=== PATIENT | male | born 1980 | race Caucasian/White ===

== ENCOUNTER 2018-11-26 23:19 | Emergency (ER) | payer OTHER ==
[~2018-11-26] VITALS: Ht 177.8 cm; Wt 74.8 kg
[2018-11-26 23:21] VITALS: BP 140/82; PULSE 72; RESP 18; Ht 177.8 cm; Wt 74.8 kg
[2018-11-27] MEDS ORDERED: BEN25 PO (01:20)
[2018-11-27] MEDS ORDERED: FAMO-96 PO (01:20)
[2018-11-27] MEDS ORDERED: PRED20TA PO (01:20)
[2018-11-27] MEDS ORDERED: DIPHENHYDRAMINE 50 MG CAP PO ONE (01:30)
[2018-11-27] MEDS ORDERED: FAMOTIDINE 20 MG TAB PO ONE (01:30)
[2018-11-27] MEDS ORDERED: predniSONE 20 MG TAB PO ONE (01:30)
--- NOTE | 2018-11-27 06:04 | ERD ---
ER Documentation Chief Complaint Chief Complaint STATES HIS THROAT FEELS LIKE ITS SWELLING AFTER EATING RAW SHRIMP HPI 38-year-old male with no significant past medical history presenting to the emergency department complaining of feelings of his throat swelling after eating raw shrimp approximately 1 hour prior to arrival. Patient denies any rashes or itching. He states he has eaten shrimp in the past without symptoms. He tried no medication for relief of symptoms. He denies any shortness of breath. He denies any fevers, chills, or other symptoms at this time. Symptoms have improved significantly after arriving in the emergency department. ROS All systems reviewed and are negative except as per history of present illness. Medications Home Meds Active Scripts Prednisone* (Prednisone*) 20 Mg Tab, 40 MG PO DAILY for 4 Days, TAB Prov:ALICE GE PA-C 11/27/18 Famotidine* (Pepcid*) 20 Mg Tablet, 20 MG PO BID for 5 Days, TAB Prov:ALICE GE PA-C 11/27/18 Diphenhydramine Hcl* (Benadryl*) 25 Mg Cap, 25 MG PO Q6, #30 CAP Prov:ALICE GE PA-C 11/27/18 Allergies Allergies: Coded Allergies: No Known Allergy (Unverified , 11/26/18) PMhx/Soc History of Surgery: No Anesthesia Reaction: No Hx Neurological Disorder: No Hx Respiratory Disorders: Yes (Childhood asthma) Hx Cardiac Disorders: No Hx Psychiatric Problems: No Hx Miscellaneous Medical Probl: No Hx Alcohol Use: No Hx Substance Use: No Hx Tobacco Use: Yes (Vape) Smoking Status: Current every day smoker FmHx Family History: No diabetes Physical Exam Vitals Vital Signs Date Temp Pulse Resp B/P (MAP) Pulse Ox O2 O2 Flow FiO2 Time Delivery Rate 11/26/18 97.8 72 18 140/82 99 23:21 (101) Physical Exam Const: No acute distress Head: Atraumatic Eyes: Normal Conjunctiva ENT: Normal External Ears, Nose and Mouth. Mild erythema to the posterior pharynx. There is no tonsillar enlargement. The airway is patent. Uvula is midline. No submental edema. No tongue swelling. No angioedema. Neck: Full range of motion. No meningismus. Resp: Clear to auscultation bilaterally Cardio: Regular rate and rhythm, no murmurs Skin: No petechiae or rashes Back: No midline or flank tenderness Ext: No cyanosis, or edema Neur: Awake and alert Psych: Normal Mood and Affect Results 24 hrs Current Medications Medications Dose Sig/Rajni Start Time Status Last (Trade) Ordered Route PRN Stop Time Admin Dose Reason Admin Prednisone 40 mg ONCE ONCE 11/27/18 DC (Prednisone) PO 01:30 11/27/18 01:31 Famotidine 20 mg ONCE ONCE 11/27/18 DC (Pepcid) PO 01:30 11/27/18 01:31 50 mg ONCE ONCE 11/27/18 DC Diphenhydrami PO 01:30 ne HCl 11/27/18 01:31 (Benadryl) Procedures/MDM 38-year-old male presenting to the emergency department with signs and symptoms most consistent with allergic reaction versus food sensitivity. The patient states he ate raw shrimp from a restaurant just prior to arrival. There was no signs of anaphylaxis. The airway was patent. No signs of rashes. Pepcid, prednisone and Benadryl were ordered for the patient, however he declined. He states he would rather be discharged home with prescriptions to treat his symptoms. Immunologic Assessment: Patient's allergic symptoms have stabilized while they have been evaluated in the department without evidence of persistent systemic reaction. Patient is healthy and capable of treating and responding to rebound reactions. Patient appropriate for outpatient allergy work up and treatment. Departure Diagnosis: Primary Impression: Food allergy Condition: Fair Patient Instructions: Food Allergy Additional Instructions: Call your primary care doctor TOMORROW for an appointment during the next 1-2 d ays.See the doctor sooner or return here if your condition worsens before your appointment time. ALICE GE PA-C November 27, 2018 06:04
== END 2018-11-27 01:30 | disposition home or self-care (01) ==
LOC: FTE 23:19
DX: T78.1XXA Other adverse food reactions, not elsewhere classified, initial encounter (principal); J45.909 Unspecified asthma, uncomplicated; F17.210 Nicotine dependence, cigarettes, uncomplicated; R22.1 Localized swelling, mass and lump, neck
CPT/HCPCS: 99283